=== PATIENT | female | born 1970 | race Caucasian/White ===

== ENCOUNTER 2016-09-17 16:40 | Emergency (ER) | payer BC, OTHER ==
[~2016-09-17] VITALS: Ht 175.3 cm; Wt 80.1 kg
[~2016-09-17 16:40] MED LIST: PRENTAB26 PO
[2016-09-17 16:49] VITALS: Ht 175.3 cm; Wt 80.1 kg
[2016-09-17] MEDS ORDERED: XYLOCAINE 1%/SOD BICARB 20 ML VIAL INFIL ONE (17:15)
[2016-09-17 17:35] VITALS: BP 127/87; PULSE 79; TEMP 36.7; O2SAT 98
--- NOTE | 2016-09-17 20:50 | EMERGENCY ROOM VISIT NOTE ---
ED Visit Note First contact with patient: 16:51 Chief Complaint: Left thumb laceration. History of Present Illness: Ms. Faulkner is a 46-year-old white female who ambulates into the ED accompanied by her to her children's complaining of a left thumb laceration. Patient reports approximately one hour ago she was carrying a metal bookshelf with her . The bookshelf slipped and she sustained a left thumb laceration. She does report she cleansed the wound and also control bleeding prior to arrival at the hospital. She denies any associated pain. She has not taken any medication for pain. Associated with her injury she also reported that she avulsed a small flap of skin off the ring finger around the nail. She does also report this was bleeding but once again she cleansed the wound and control bleeding. She denies any other hand pain and any finger weakness/numbness/tingling. Review of Systems: As noted above in history of present illness. Past Medical History: Patient denies. Current Medications: Multivitamins. Allergies to Medications: Patient denies. Social History: Patient is currently employed and lives with her and children; she feels safe in her home environment; she denies tobacco use. Tetanus Immunization Status: Patient reports up-to-date. Physical Examination: Vital Signs: Date Time Temp Pulse Resp B/P (MAP) Pulse Ox O2 Delivery O2 Flow Rate FiO2 09/17/16 17:35 36.7 79 18 127/87 98 09/17/16 17:33 79 18 127/87 98 Room Air 09/17/16 16:49 36.7 79 18 132/89 98 Room Air GENERAL: 46-year-old female in no acute distress, nontoxic-appearing, afebrile and hemodynamically stable. NEUROLOGICAL: Awake, alert and oriented to person, place and time. Answering questions appropriately and following commands. SKIN: Warm, dry and pink. Right Hand: Over the medial aspect of the thumb over the distal phalanxes patient has a 2.8 cm full-thickness laceration with minimal bleeding. Over the posterior aspect of the ring finger patient has a 2-3 mm skin avulsion at the base of the nail. Minimal bleeding. RIGHT HAND: No gross bony deformity. Soft tissue injuries as noted above. Full range of motion in flexion and extension of the first and fourth MCP joints and interphalangeal joints. Throughout these fingers the skin was warm and pink and capillary refill is brisk. She is able to distinguish light sensations through all dermatomes of the fingers. ED Course: Patient is assessed as noted above. Patient's medication list was reviewed. Wound Repair: Complexity: Basic Verbal consent was obtained after the risks and benefits were explained. The skin was prepped with betadine and a sterile field set. Wound edges of the wound was anesthetized with 1.6 ml buffered 1% lidocaine. The wound was explored for foreign bodies and none found. Copious irrigation was performed using sterile saline. With direct pressure the bleeding subsided. Debridement was not performed. The wound edges were approximated using 5-0 Ethilon with 6 simple interrupted sutures. Hemostasis and excellent approximation was achieved. Antibacterial ointment and a sterile dressing applied. No complications and the patient tolerated the procedure well. Patient did tell me she cleansed her other wound and didn't feel it was necessary to be re-cleansed at this time. Patient was offered pain medications and refused. Patient was educated about tonight's findings and instructed on his treatment plan; he verbalizes understanding and agreement with this plan. Clinical Impression: Laceration of the right thumb. Small skin avulsion to the right ring finger. Disposition: Patient discharged home in stable condition; prior to departure he was reassessed and subjectively reported she was pain and symptom-free. Plan: Comfort measures, wound care, and signs of infection were discussed with the patient. Patient was encouraged to follow-up with PCP or return to the ED for signs of infection and/or suture removal in 10-12 days.
== END 2016-09-17 17:37 | disposition home or self-care (01) ==
LOC: C.EDB 16:41 → C.EDD 17:37
DX: S61.021A Laceration with foreign body of right thumb without damage to nail, initial encounter (principal); S61.214A Laceration without foreign body of right ring finger without damage to nail, initial encounter; W45.8XXA Other foreign body or object entering through skin, initial encounter; Y93.89 Activity, other specified